=== PATIENT | female | born 1970 | race African-American/Black ===

== ENCOUNTER 2023-05-24 13:42 | Emergency (ER) | payer SELFPAY ==
--- NOTE | ~2023-05-24 | CT_ITS ---
EXAMINATION: CT brain wo con DATE: 05/24/2023 15:53 INDICATION: Headache and dizziness . TECHNIQUE: Computed tomography (CT) of the head was performed without intravenous contrast. The mA wa s adjusted according to patient size. Iterative reconstruction technique was employed. The dose-lengt h product was 605.33 mGy-cm. COMPARISON: None. FINDINGS: No acute intracranial hemorrhage or extra-axial fluid collection. No hydrocephalus, mass, or herniation. No acute ischemic infarct. Unremarkable dural venous sinus attenuation. No acute osseous abnormality. The aerated spaces are clear. IMPRESSION: No acute intracranial process. Reviewed, dictated and finalized at location K.
--- NOTE | 2023-05-24 13:44 | ECG_ITS ---
Measurements Intervals [place] Rate: 75 P: 16 WI: 132 QRS: -10 QRSD: 105 T: 60 QT: 364 QTc: 407 Interpretive Statements SINUS RHYTHM LEFT VENTRICULAR HYPERTROPHY AND ST-T CHANGE [VOLTAGE CRITERIA PLUS ST/T ABNORMALITY] NO PREVIOUS ECG AVAILABLE FOR COMPARISON Electronically Signed On 05-24-2023 19:16:49 CDT by Lissette Garrison M.D.
[2023-05-24 13:45] VITALS: BP 213/112; PULSE 78; RESP 16; TEMP 36.8; O2SAT 98
[2023-05-24 14:07] LABS: Basophils Percent Auto 0.4 % (0.2-1.2); Eosinophils Absolute Auto 0.2 K/mm3 (0-0.3); Eosinophils Percent Auto 2.8 % (0-4.4); Hemoglobin 12.9 g/dL (12.0-15.0); Immature Granulocyte Absolute 0.04 K/mm3 (0.00-0.031); Immature Granulocyte Percent A 0.5 % (0-0.5); Lymphocytes Absolute Auto 2.25 K/mm3 (0.9-3.2); Lymphocytes Percent Auto 28.7 % (18.3-44.2); Mean Corpuscular HGB Conc 30.7 g/dl (32-36); Mean Corpuscular Hemoglobin 28.5 pg (26-34); Mean Corpuscular Volume 92.9 fl (80-100); Mean Platelet Volume 9.5 fl (7.4-10.4); Monocytes Absolute Auto 0.6 K/mm3 (0.1-0.6); Neutrophils Absolute Auto 4.8 K/mm3 (1.3-6.7); Neutrophils Percent Auto 60.6 % (45.5-73.1); Platelet Count Result 298 k/mm3 (150-375); Red Blood Count 4.52 M/mm3 (4.2-5.4); Red Cell Distribution Width 12.4 % (11.5-14.5); White Blood Count 7.9 K/mm3 (4.5-10.0)
[2023-05-24 14:15] LABS: Alanine Aminotransferase 34 U/L (6-35); Albumin Level 4.6 g/dL (3.5-5.1); Alkaline Phosphatase 65 U/L (38-126); Anion Gap 9 mmol/L (8-16); Aspartate Amino Transferase 32 U/L (14-36); Bilirubin,Total 0.5 mg/dL (0.2-1.3); Blood Urea Nitrogen 14 mg/dL (7-17); Calcium 9.7 mg/dL (8.4-10.2); Carbon Dioxide 25 mmol/L (22-30); Chloride 103 mmol/L (98-107); Estimated CRCL calculation 94 ml/min; Estimated Glomerular Filt Rate > 60; Glucose 90 mg/dL (65-110); Potassium 3.7 mmol/L (3.4-5.0); Sodium 137 mmol/L (137-145)
[2023-05-24 15:24] VITALS: BP 206/100; PULSE 70; RESP 15; O2SAT 100
--- NOTE | 2023-05-24 16:00 | ED.DIZZY ---
HPI - Dizziness General Chief Complaint: Dizziness Stated Complaint: dizzy/headache Time Seen by Provider: 05/24/23 15:24 History of Present Illness HPI Narrative: This is a 52-year-old female, with history of hypertension on atenolol, who presents to the emergency department complaining of vertigo and headache. The patient states her symptoms are going on for the past week. She describes the headache as sharp, either located at the back of the left side of the head or just behind the right ear. She denies associated weakness, numbness, loss of vision or hearing. She also complains of right vertigo, aggravated by looking up or sitting forward. Related Data Allergies Allergy/AdvReac Type Severity Reaction Status Date / Time No Known Allergies Allergy Unverified 04/13/19 12:05 Review of Systems Review of Systems: CONSTITUTIONAL: Denies fever, chills, or sweats. EYES: Denies visual changes, redness, or discharge. ENT: Denies rhinorrhea, congestion, sore throat, or otalgia. CARDIOVASCULAR: Denies chest pain, palpitations, or edema. RESPIRATORY: Denies cough or dyspnea. GASTROINTESTINAL: Denies abdominal pain, nausea, vomiting, or diarrhea. GENITOURINARY: Denies dysuria or hematuria. SKIN: Denies rash or itching. MUSCULOSKELETAL: Denies back pain, joint pain, or myalgia. NEUROLOGIC: Vertigo and headache denies numbness, or weakness. PSYCHIATRIC: Denies anxiety or depression. [facility] Surgical History Surgical History (Updated 05/25/23 @ 20:31 by Donte Valencia MD) No significant past surgical history Social History Social History (Updated 05/25/23 @ 20:31 by Donte Valencia MD) Smoking status: Never smoker Alcohol intake: never Substance use: never Exam Narrative: GENERAL: Well-developed, well-nourished, in no acute distress HEAD: Normocephalic, atraumatic EYES: PERRLA and EOMI ENT: Nares clear, no rhinorrhea or epistaxis. Mucous membranes moist. Oropharynx without tonsillar hypertrophy or exudate or other lesions. Bilateral TMs intact and not bulging NECK: Supple. No carotid bruits or JVD CHEST: Clear to auscultation. No respiratory distress. No wheezes, rales or rhonchi. HEART: Regular rate and rhythm. No murmur heard. normal peripheral pulses. ABDOMEN: Soft, nontender, nondistended, normoactive bowel sounds. EXTREMITIES: Normal range of motion. No edema. SKIN: Warm, dry, no rash. NEURO: Alert and oriented x3. Strength 5/5 in all extremities, sensation intact bilaterally, no noted ataxia, CN II-XII intact, HINTS exam negative. Patti-Halpike maneuver elicits nystagmus to the right PSYCH: Normal mood and affect. Course Course Emergency Course: 17:32 - HINTS exam negative. Exam consistent with BPPV. CBC unremarkable. Chemistries unremarkable. EKG not concerning for ischemia. CT head not concerning for intracranial mass or hemorrhage. The patient's blood pressure improved after IV labetalol and hydralazine. Will discharge with atenolol refill and recommendation for primary care follow-up. Discussed return and emergency precautions including signs/symptoms of intracranial hemorrhage and stroke. The patient voiced understanding and is comfortable with the plan. All questions answered to her satisfaction. Vital Signs Vital signs: Vital Signs Temperature 98.2 F 05/24/23 13:45 Pulse Rate 78 05/24/23 13:45 Respiratory Rate 16 05/24/23 13:45 Blood Pressure 213/112 H 05/24/23 13:45 Pulse Oximetry 98 05/24/23 13:45 Oxygen Delivery Room Air 05/24/23 13:45 Temperature 97.8 F 05/24/23 17:48 Pulse Rate 83 05/24/23 17:41 Respiratory Rate 16 05/24/23 17:41 Blood Pressure 148/81 H 05/24/23 17:41 Pulse Oximetry 100 05/24/23 17:41 Oxygen Delivery Room Air 05/24/23 13:45 MDM - Dizziness MDM Narrative Medical decision making narrative: Plan: Labs, imaging, blood pressure control, reassess Differential Diagnosis Differential diagnosis: Likely other (
[2023-05-24] MEDS: LABETALOL HCL INJ 100 MG/20 ML VIAL 20 MG IV PUSH (16:39)
[2023-05-24 16:41] VITALS: BP 167/98; PULSE 73; RESP 16; O2SAT 98
[2023-05-24] MEDS: hydrALAZINE HCL 20 MG/ML VIAL IV PUSH (17:14)
[2023-05-24 17:41] VITALS: BP 148/81; PULSE 83; RESP 16; TEMP 37.1; O2SAT 100
[2023-05-24 17:48] VITALS: TEMP 36.6
== END 2023-05-24 17:50 | disposition home or self-care (01) ==
PROVIDERS: Student in an Organized Health Care Education/Training Program; Emergency Provider Preventive Medicine Aerospace Medicine
DX: H81.10 Benign paroxysmal vertigo, unspecified ear (principal); I10 Essential (primary) hypertension
CPT/HCPCS: 36415; 70450; 80053; 85025; 93005; 96374; 96375; 99284; J0360